=== PATIENT | female | born 1970 | race Caucasian/White ===

== ENCOUNTER 2018-06-30 14:35 | Emergency (ER) | payer OTHER ==
[~2018-06-30] VITALS: Ht 167.6 cm; Wt 68.0 kg
[2018-06-30 14:48] VITALS: BP 162/97
== END 2018-06-30 15:37 | disposition home or self-care (01) ==
LOC: ER 14:38
DX: F10.239 Alcohol dependence with withdrawal, unspecified (principal); R42 Dizziness and giddiness; F41.9 Anxiety disorder, unspecified; F41.0 Panic disorder [episodic paroxysmal anxiety]
CPT/HCPCS: 99283; A4606; Z7610; Z7502